=== PATIENT | female | born 1955 | race Caucasian/White ===

== ENCOUNTER 2020-02-11 08:41 | Day surgery (SDC) | payer MEDICARE, BC, OTHER ==
[~2020-02-11] VITALS: Ht 162.6 cm; Wt 79.9 kg
[~2020-02-11 08:41] MED LIST: BUSP5; Buspirone HCl30 MG PO; CITA10S; CITA20 PO; FISH OIL + D31 EACH; ROSU10TA; ROSU10TA PO
--- NOTE | 2020-02-11 09:15 | NUR ---
History, Chart, Medications and Allergies reviewed before start of procedure. Lungs clear T/O to Auscultation. Patient confirms NPO status and agrees with scheduled surgery. Pre-Op teaching done. Pt verbalizes understanding. Patient reports completing Chlorhexadine shower X1 prior to admission to hospital.
--- NOTE | 2020-02-11 11:39 | NUR ---
PT TO STAY IN PACU DAY SURGERY PT . PT AT 1140 IS NOW BEING TRANSFERED PER JUANY TO DAY SURGERY REPORT GIVEN TO OSMEL SANDERSON
--- NOTE | 2020-02-11 12:39 | NUR ---
"DAY SURGERY RN | DISCHARGE VSS. A/O. NAUSEA DECREASING. PAIN DECREASING. TOLERATING PO FLUIDS AND FOOD. DISCHARGE INSTRUCTIONS AND RX GIVEN TO PATIENT. SITE C/D/I. NO ISSUES. GOOOD CIRCULATION IN EXTREMITIES. TO ENTRANCE BY THIS RN VIA WHEELCHAIR. [employer] VICE PRESIDENT SIGNED PAPER INDICATING [employer] VICE PRESIDENT RESPONSIBILITY."
== END 2020-02-11 23:01 | disposition home or self-care (01) ==
LOC: ORSCMMR 08:41 → ORD 09:30 → ORSCMMR 23:01
PROVIDERS: Orthopaedic Surgery
PROC: 0LX80ZZ Transfer Left Hand Tendon, Open Approach (ICD-10-PCS; principal; 2020-02-11 09:30)
PROC: 0RQT0ZZ Repair Left Carpometacarpal Joint, Open Approach (ICD-10-PCS; principal; 2020-02-11 09:30)
DX: M18.12 Unilateral primary osteoarthritis of first carpometacarpal joint, left hand (principal); F41.9 Anxiety disorder, unspecified; Z79.899 Other long term (current) drug therapy
CPT/HCPCS: A9270-GY; C1713; J0690; J2250; J3010; J7120